=== PATIENT | male | born 1995 | race Caucasian/White ===

== ENCOUNTER 2022-11-24 12:14 | Emergency (ER) | payer OTHER ==
[2022-11-24 12:39] VITALS: BP 122/73; PULSE 87; RESP 18; TEMP 99; BMI 209.5
== END 2022-11-24 15:25 | disposition home or self-care (01) ==
LOC: JERFT 12:14
DX: R21 Rash and other nonspecific skin eruption (principal); L29.9 Pruritus, unspecified; R11.2 Nausea with vomiting, unspecified; R19.7 Diarrhea, unspecified; A05.9 Bacterial foodborne intoxication, unspecified; T78.40XA Allergy, unspecified, initial encounter
CPT/HCPCS: 99283-25